=== PATIENT | male | born 1955 | race Caucasian/White ===

== ENCOUNTER 2016-07-07 05:19 | Day surgery (SDC) | payer OTHER, BC ==
[2016-07-06 12:00] LABS: HEMATOCRIT 48.4 % (42.0-54.0); HEMOGLOBIN 15.8 g/dL (13.5-17.5); MCH 28.8 pg (26.0-34.0); MCHC 32.6 g/dL (31.0-37.0); MCV 88.3 fL (80.0-100.0); RBC 5.48 10x6/uL (4.20-6.10); RDW 13.2 % (11.5-14.5); WBC 7.2 10x3/uL (4.8-10.8)
[2016-07-06 12:20] LABS: CALC OSMOLALITY 280 mosm/kg (275-300); CALCIUM 9.7 mg/dL (8.5-10.1); CARBON DIOXIDE 30.2 mmol/L (21.0-32.0); CHLORIDE - SERUM 104 mmol/L (98-107); CREATININE - SERUM 0.9 mg/dL (0.6-1.3); GLUCOSE 113 mg/dL (74-106); POTASSIUM - SERUM 4.8 mmol/L (3.5-5.1); SODIUM 137 mmol/L (136-145); UREA NITROGEN 29 mg/dL (7-18); eGFR NON AFRICAN AMERICAN > 90 mL/min (90-120)
[~2016-07-07] VITALS: Ht 182.9 cm; Wt 96.6 kg
[~2016-07-07 05:19] MED LIST: GLUCOPHAGE500 MG PO; LISINOPRIL2.5 MG PO
[2016-07-07 07:00] VITALS: BP 123/79; Ht 182.9 cm; Wt 96.6 kg
[2016-07-07] MEDS ORDERED: HYDROCODON-ACE1 EAC7 PO (09:15)
[2016-07-07] MEDS ORDERED: CYCLOBENZAPRINE10 MG PO (09:16)
--- NOTE | 2016-07-07 10:29 | NUR ---
RACEMIC EPI 2.25 UPDRAFT GIVEN AT 0930
--- NOTE | 2016-07-07 12:25 | OP ---
PATIENT NAME: HESHAM MORILLO MEDICAL RECORD: [id number] :57 LOCATION:[facility] ADMISSION DATE: SURGEON: KAYLEE JARAMILLO MD DATE OF OPERATION: 07/07/2016 SURGEON: Kaylee Jaramillo MD. PREOPERATIVE DIAGNOSES: 1. Ventral hernia without obstruction 2. Diabetes. 3. Hypertension. POSTOPERATIVE DIAGNOSES: 1. Ventral hernia without obstruction 2. Diabetes. 3. Hypertension. PROCEDURE PERFORMED: Laparoscopic ventral hernia repair with Ventralight ST mesh. ANESTHESIA: General. COMPLICATIONS: None. SPECIMENS: None. Case was clean. ESTIMATED BLOOD LOSS: 10 cc. OPERATIVE COURSE: After consent was obtained, the patient was taken to the operating room and placed in supine position on the operating table. Next, general anesthesia was given via endotracheal intubation after a timeout was performed to confirm the correct patient and procedure. The abdomen was prepped and draped in typical sterile fashion. Ioban dressing was placed. Local anesthetic was injected in the left lower quadrant at Grant's point. A stab incision was made with an 11-blade scalpel. Using a 5-mm bladeless optical trocar, the abdomen was entered under direct laparoscopic vision. Adequate pneumoperitoneum was achieved. The abdominal cavity was inspected. No evidence of bowel injury. No evidence of bleeding. At this time, all remaining trocars were placed, 12-mm trocar in the left lateral quadrant, 5-mm trocar in the left lower quadrant. Two 5-mm trocars in the right lateral quadrant. The preperitoneal fat was meticulously dissected off the abdominal wall. The ventral hernia was dissected. The hernia sac was excised. There was an approximately 3 cm x 3 cm ventral hernia defect in the midline. At this time, with the preperitoneal fat dissected off the fascia, the 6-inch Ventralight ST circular mesh with Echo positioning system was placed in the abdomen. The Echo positioning system was deployed. This was used to hold the mesh firmly against the abdominal wall. It was secured circumferentially using the OptiFix suture in a double crown fashion. The Echo positioning system was removed. At this time, the abdominal cavity was inspected. There was no evidence of bowel injury. No evidence of bleeding. At this time, all remaining instruments were removed. The abdomen was desufflated. Trocars removed. Skin was closed with 4-0 Monocryl, Mastisol and Steri-Strips. At the end of the case, all needle and instrument counts were correct. No complications occurred. The patient was OPERATIVE REPORT [id number] HESHAM MORILLO extubated and transferred to the PACU in stable condition. TRANSINT:[id number] Voice Confirmation ID: [id number] DOCUMENT ID: [id number] KAYLEE JARAMILLO MD at 1225 CC: [id number] DICTATION DATE: 07/07/16921 ORTHODONTIC TREATMENT COORDINATOR: 07/07/16 1203 [facility] 07/07/16 [id number] [place] [address]
== END 2016-07-07 11:34 | disposition home or self-care (01) ==
LOC: D.OPS 05:19 → D.PAN 08:00 → D.OPS 08:00
PROVIDERS: Anesthesiology
DX: K43.9 Ventral hernia without obstruction or gangrene (principal); I10 Essential (primary) hypertension; G47.30 Sleep apnea, unspecified; E11.9 Type 2 diabetes mellitus without complications; Z01.812 Encounter for preprocedural laboratory examination

== ENCOUNTER → 2017-03-30 13:43 | Outpatient (CLI) | payer BC ==
[2016-07-07 07:00] VITALS: BMI 28.9
[~2017-03-30 13:43] MED LIST changes: +CYCLOBENZAPRINE10 MG PO; +HYDROCODON-ACE1 EAC7 PO
== END | disposition home or self-care (01) ==
LOC: D.US 13:43
DX: R10.9 Unspecified abdominal pain (principal); M54.5 Low back pain

== ENCOUNTER → 2017-05-03 11:17 | Outpatient (CLI) | payer BC ==
[2016-07-07 07:00] VITALS: BMI 28.9
== END | disposition home or self-care (01) ==
LOC: D.RAD 11:17
DX: N20.0 Calculus of kidney (principal)

== ENCOUNTER → 2020-05-16 15:02 | Outpatient (CLI) | payer BC ==
[2016-07-07 07:00] VITALS: BMI 28.9
[2020-05-16 16:14] LABS: T4 THYROXIN - FREE 1.12 ng/dL (0.76-1.46); THYROID STIMULATING HORMONE 0.65 uIU/mL (0.36-3.74)
== END | disposition home or self-care (01) ==
LOC: D.LABREF 15:02
PROVIDERS: ATTEND Nurse Practitioner
DX: I10 Essential (primary) hypertension (principal); I48.91 Unspecified atrial fibrillation

== ENCOUNTER → 2020-05-27 13:48 | Outpatient (CLI) | payer BC ==
[2016-07-07 07:00] VITALS: BMI 28.9
== END | disposition home or self-care (01) ==
LOC: D.HCCECHO 13:48
PROVIDERS: ATTEND Internal Medicine Cardiovascular Disease
DX: R06.00 Dyspnea, unspecified (principal); I48.91 Unspecified atrial fibrillation